=== PATIENT | male | born 1975 | race American Indian/Alaskan Native ===

== ENCOUNTER 2019-11-03 07:30 | Day surgery (SDC) | payer MEDICAID ==
[~2019-11-03 07:30] MED LIST: Bupivacaine 0.5% 50 ML MDV ONE; Lidocaine 1% with EPINEPHrine 1:100,000 50 ML MDV ONE; Lidocaine 2% Jelly 30 ML Tube ONE
[2019-11-03] MEDS ORDERED: Propofol 200 MG/20 ML SDV ONE ×2 (08:07→09:58)
[2019-11-03] MEDS ORDERED: fentaNYL 100 MCG/2 ML SDV ONE (08:07)
[2019-11-03] MEDS ORDERED: Midazolam 1 MG/ML 2 ML SDV ONE ×2 (08:07→09:51)
[2019-11-03] MEDS ORDERED: Sodium Chloride 0.9% 1,000 ML IV SCH (08:30)
[2019-11-03] MEDS ORDERED: ceFAZolin 2 GM in Premix Bag 1 BAG IV ONE (08:45)
--- NOTE | 2019-11-04 09:02 | OR ---
DATE OF PROCEDURE: 11/03/2019 SURGEON: Luis Fernando Vasques MD PROCEDURE: Incision and drainage of rectal abscess. COMPLICATIONS: None. AIR HOSE COUPLER: None. ANESTHESIA: MAC/local. RISKS: Risks, benefits, alternatives, and limitations including, but not limited to infection, bleeding, and perforation were explained to the patient who wished to proceed. I also discussed chronic fistula formation, fissures, and other risks not listed here. PROCEDURE IN DETAIL: The patient was placed in prone position. With the area palpated, lymphatic tissue preoperatively was identified. A single ni was created in the skin and the area was opened and evaluated. Minimal drainage was noted. This was packed with 1 quarter-inch iodoform gauze. The patient tolerated the procedure well. Luis Fernando Vasques MD /[id number]
== END 2019-11-03 11:25 | disposition home or self-care (01) ==
LOC: JP.SDS 07:30
PROVIDERS: ATTEND Surgery
DX: K61.1 Rectal abscess (principal); E66.9 Obesity, unspecified; I10 Essential (primary) hypertension; Z68.41 Body mass index [BMI] 40.0-44.9, adult
CPT/HCPCS: 46040; 93005; 93010; J0690; J2250; J2704; J3010; J3490; J7030